=== PATIENT | male | born 1935 | race Caucasian/White ===

== ENCOUNTER 2024-07-31 16:08 | Inpatient (IN) | payer MEDICARE, MEDICAID ==
[~2024-07-31] VITALS: Ht 180.3 cm; Wt 125.3 kg
[2024-07-31 16:29] LABS: BASOPHILS # (AUTO) 0.1 K/UL (0.0-0.2); BASOPHILS % (AUTO) 0.7 % (0.0-2.0); EOSINOPHILS # (AUTO) 0.1 K/uL (0.0-0.7); EOSINOPHILS % (AUTO) 0.9 % (0.0-7.0); HEMATOCRIT 36.2 % (36.7-47.1); LYMPHOCYTES # (AUTO) 2.5 K/uL (0.8-4.8); MEAN CORPUSCULAR HGB CONC 33 g/dL (32.5-36.3); MEAN CORPUSCULAR VOLUME 90.7 fL (73.0-96.2); MONOCYTES # (AUTO) 0.9 K/uL (0.1-1.30); MONOCYTES % (AUTO) 8.1 % (0.0-11.0); NEUTROPHILS # (AUTO) 7.4 K/uL (1.8-8.9); NEUTROPHILS % (AUTO) 67.3 % (38.5-71.5); PLATELET COUNT (AUTO) 219 K/uL (152-348); RED BLOOD CELL COUNT(AUTO) 3.99 MIL/uL (4.06-5.63); RED CELL DISTRIBUTION WIDTH 13.8 % (12.1-16.2)
[2024-07-31 16:32] LABS: DIFFERENTIAL COMMENT 1
[2024-07-31] MEDS ORDERED: AREDS2 PO (16:36)
[2024-07-31] MEDS ORDERED: ACET325C7 PO (16:36)
[2024-07-31] MEDS ORDERED: FURO20TA4 PO (16:36)
[2024-07-31] MEDS ORDERED: SENN1TAB33 PO (16:36)
[2024-07-31 16:41] LABS: CARBON DIOXIDE 29 mmol/L (21-32); CHLORIDE 106 mmol/L (98-107); GLUCOSE 142 mg/dL (74-106); SODIUM SERUM 144 mmol/L (136-145); UREA NITROGEN, BLOOD 23 mg/dL (7-18)
[2024-07-31 16:49] LABS: ALANINE AMINOTRANSFERASE 15 U/L (16-63); ALBUMIN 3.4 g/dL (3.4-5.0); ALKALINE PHOSPHATASE 87 U/L (50-136); ASPARTATE AMINOTRANSFERASE 19 U/L (15-37); BILIRUBIN,DIRECT 0.1 mg/dL (0.0-0.2); BILIRUBIN,TOTAL 0.3 mg/dL (0.2-1.0); LIPASE 24 U/L (16-77); TOTAL PROTEIN, SERUM 6.6 g/dL (6.4-8.2)
[2024-07-31] MEDS: IV NORMAL SALINE 500 ML BAG IV ONE (16:51)
[2024-07-31 18:01] LABS: *BILIRUBIN,URIN NEGATIVE (NEGATIVE); *BLOOD, URINE NEGATIVE (NEGATIVE); *CLARITY,URINE CLEAR (CLEAR); *COLOR,URINE YELLOW (YELLOW); *KETONES,URINE NEGATIVE (NEGATIVE); *PROTEIN,URINE NEGATIVE (NEGATIVE); *UROBILINOGEN,URINE 0.2 E.U./dl (NORMAL); LEUKOCYTE ESTERASE ,URINE NEGATIVE (NEGATIVE); NITRITE, URINE NEGATIVE (NEGATIVE); UGLUCOSE NEGATIVE (NEGATIVE)
[2024-07-31] MEDS ORDERED: Medication Not On Formulary EA (Acetaminophen (Tylenol) 2 CAP) PO PRN (20:45)
[2024-07-31] MEDS ORDERED: MAGNESIUM HYDROXIDE 30 ML LIQUID UDC PO PRN (21:00)
[2024-07-31] MEDS ORDERED: HYDROCODONE/APAP 5-325MG TABLET PO PRN (21:00)
[2024-07-31] MEDS ORDERED: ACETAMINOPHEN 325 MG TABLET PO PRN (21:00)
[2024-07-31] MEDS ORDERED: ONDANSETRON 4 MG/2 ML VIAL IV PRN ×2 (21:00)
[2024-07-31] MEDS ORDERED: TEMAZEPAM 15 MG CAPSULE PO PRN ×2 (21:00)
[2024-07-31] MEDS ORDERED: DOCUSATE SODIUM 100 MG CAPSULE PO SCH (21:00)
[2024-07-31] MEDS: DOCUSATE SODIUM 100 MG CAPSULE PO SCH (23:36)
[2024-08-01] VITALS: BP 140/52; TEMP 97.9; O2SAT 93
[2024-08-01 04:00] VITALS: BP 124/38; TEMP 98.3; O2SAT 97
[2024-08-01] MEDS ORDERED: TEMAZEPAM 7.5 MG CAPSULE PO PRN (06:15)
[2024-08-01] MEDS: PANTOPRAZOLE SODIUM 40 MG TABLET.DR PO SCH (06:52)
[2024-08-01 07:19] VITALS: BP 151/64; TEMP 98.1; O2SAT 95
[2024-08-01 07:34] LABS: BASOPHILS # (AUTO) 0.1 K/UL (0.0-0.2); BASOPHILS % (AUTO) 0.7 % (0.0-2.0); EOSINOPHILS # (AUTO) 0.1 K/uL (0.0-0.7); EOSINOPHILS % (AUTO) 1.4 % (0.0-7.0); HEMATOCRIT 35.3 % (36.7-47.1); LYMPHOCYTES # (AUTO) 1.6 K/uL (0.8-4.8); MEAN CORPUSCULAR HEMOGLOBIN 30.9 uug (23.8-33.4); MEAN CORPUSCULAR HGB CONC 34 g/dL (32.5-36.3); MEAN CORPUSCULAR VOLUME 90.9 fL (73.0-96.2); MONOCYTES # (AUTO) 0.6 K/uL (0.1-1.30); MONOCYTES % (AUTO) 7.2 % (0.0-11.0); NEUTROPHILS # (AUTO) 5.5 K/uL (1.8-8.9); NEUTROPHILS % (AUTO) 70.7 % (38.5-71.5); PLATELET COUNT (AUTO) 187 K/uL (152-348); RED BLOOD CELL COUNT(AUTO) 3.88 MIL/uL (4.06-5.63); WHITE BLOOD COUNT (AUTO) 7.8 K/uL (3.6-10.2)
[2024-08-01 08:00] LABS: DIFFERENTIAL COMMENT 1
[2024-08-01 08:02] LABS: ALANINE AMINOTRANSFERASE 22 U/L (16-63); ALBUMIN 3.2 g/dL (3.4-5.0); ALKALINE PHOSPHATASE 81 U/L (50-136); ASPARTATE AMINOTRANSFERASE 21 U/L (15-37); BILIRUBIN,TOTAL 0.4 mg/dL (0.2-1.0); CALCIUM 8.5 mg/dL (8.5-10.1); CARBON DIOXIDE 31 mmol/L (21-32); CHLORIDE 105 mmol/L (98-107); CHOLESTEROL 150 mg/dL (<200); GLUCOSE 136 mg/dL (74-106); HDL CHOLESTEROL 46 mg/dL (40-60); MAGNESIUM 2.1 mg/dL (1.8-2.4); PHOSPHOROUS 3.5 mg/dL (2.5-4.9); POTASSIUM 3.8 mmol/L (3.5-5.1); SODIUM SERUM 140 mmol/L (136-145); TOTAL PROTEIN, SERUM 6.3 g/dL (6.4-8.2); TRIGLYCERIDES 114 MG/DL (30-150); UREA NITROGEN, BLOOD 18 mg/dL (7-18)
[2024-08-01 08:08] LABS: THYROID STIMULATING HORMONE 1.949 mIU/mL (0.358-3.740)
[2024-08-01] MEDS: FUROSEMIDE 20 MG TABLET PO SCH (08:53)
[2024-08-01] MEDS: SENNOSIDES/DOCUSATE SODIUM TABLET PO SCH ×2 (08:53→17:38)
[2024-08-01] MEDS: ACETAMINOPHEN 325 MG TABLET PO PRN (10:36)
[2024-08-01 11:02] VITALS: BP 121/52; TEMP 97.7; O2SAT 95
[2024-08-01] MEDS ORDERED: SERT-440 PO (14:52)
[2024-08-01] MEDS ORDERED: POLY119P2 PO (14:53)
[2024-08-01] MEDS: HYDROCODONE/APAP 5-325MG TABLET PO PRN (15:25)
[2024-08-01 15:53] VITALS: BP 137/55; TEMP 98.4; O2SAT 95
[2024-08-01] MEDS: MIRALAX 17 GM POWD.PACK PO SCH (17:38)
[2024-08-01] MEDS: SERTRALINE HCL 100 MG TABLET PO SCH (17:38)
[2024-08-01 19:00] VITALS: BP 133/58; TEMP 98.6; O2SAT 95
[2024-08-02] MEDS: MORPHINE SULFATE 4 MG/1 ML DISP.SYRIN IV PRN (00:44)
[2024-08-02 06:00] VITALS: BP 145/50; TEMP 97.4; O2SAT 95
[2024-08-02 07:02] LABS: BASOPHILS # (AUTO) 0.1 K/UL (0.0-0.2); BASOPHILS % (AUTO) 0.7 % (0.0-2.0); EOSINOPHILS # (AUTO) 0.1 K/uL (0.0-0.7); EOSINOPHILS % (AUTO) 1.6 % (0.0-7.0); HEMATOCRIT 36.4 % (36.7-47.1); HEMOGLOBIN 12.1 g/dL (12.5-16.3); LYMPHOCYTES # (AUTO) 1.5 K/uL (0.8-4.8); LYMPHOCYTES % (AUTO) 17.5 % (20.5-51.5); MEAN CORPUSCULAR HEMOGLOBIN 30.3 uug (23.8-33.4); MEAN CORPUSCULAR HGB CONC 33 g/dL (32.5-36.3); MEAN CORPUSCULAR VOLUME 90.8 fL (73.0-96.2); MONOCYTES # (AUTO) 0.6 K/uL (0.1-1.30); MONOCYTES % (AUTO) 7.2 % (0.0-11.0); NEUTROPHILS # (AUTO) 6.3 K/uL (1.8-8.9); PLATELET COUNT (AUTO) 181 K/uL (152-348); RED BLOOD CELL COUNT(AUTO) 4.01 MIL/uL (4.06-5.63); RED CELL DISTRIBUTION WIDTH 13.9 % (12.1-16.2); WHITE BLOOD COUNT (AUTO) 8.6 K/uL (3.6-10.2)
[2024-08-02 07:08] LABS: CALCIUM 8.1 mg/dL (8.5-10.1); CARBON DIOXIDE 32 mmol/L (21-32); CHLORIDE 104 mmol/L (98-107); CREATININE 0.8 mg/dL (0.6-1.3); GLUCOSE 143 mg/dL (74-106); POTASSIUM 4.2 mmol/L (3.5-5.1); SODIUM SERUM 143 mmol/L (136-145); UREA NITROGEN, BLOOD 15 mg/dL (7-18)
[2024-08-02 07:17] LABS: DIFFERENTIAL COMMENT 1
[2024-08-02 11:15] VITALS: BP 140/59; TEMP 98.4; O2SAT 94
[2024-08-02 15:17] VITALS: BP 103/47; TEMP 97.6; O2SAT 95
[2024-08-02 19:00] VITALS: BP 126/43; TEMP 98.8; O2SAT 97
[2024-08-02] MEDS: HYDROCODONE/APAP 5-325MG TABLET PO PRN (20:39)
[2024-08-03 06:00] VITALS: BP 120/78; TEMP 97.6; O2SAT 95
[2024-08-03 06:43] LABS: BASOPHILS # (AUTO) 0.1 K/UL (0.0-0.2); BASOPHILS % (AUTO) 0.7 % (0.0-2.0); EOSINOPHILS # (AUTO) 0.2 K/uL (0.0-0.7); EOSINOPHILS % (AUTO) 1.6 % (0.0-7.0); HEMATOCRIT 37.9 % (36.7-47.1); HEMOGLOBIN 12.6 g/dL (12.5-16.3); LYMPHOCYTES # (AUTO) 1.6 K/uL (0.8-4.8); LYMPHOCYTES % (AUTO) 16.7 % (20.5-51.5); MEAN CORPUSCULAR HEMOGLOBIN 30.1 uug (23.8-33.4); MEAN CORPUSCULAR HGB CONC 33 g/dL (32.5-36.3); MEAN CORPUSCULAR VOLUME 90.2 fL (73.0-96.2); MONOCYTES # (AUTO) 0.7 K/uL (0.1-1.30); MONOCYTES % (AUTO) 7.6 % (0.0-11.0); NEUTROPHILS # (AUTO) 7.1 K/uL (1.8-8.9); NEUTROPHILS % (AUTO) 73.4 % (38.5-71.5); PLATELET COUNT (AUTO) 186 K/uL (152-348); RED CELL DISTRIBUTION WIDTH 13.8 % (12.1-16.2); WHITE BLOOD COUNT (AUTO) 9.7 K/uL (3.6-10.2)
[2024-08-03 06:49] LABS: CALCIUM 8.5 mg/dL (8.5-10.1); CARBON DIOXIDE 31 mmol/L (21-32); CHLORIDE 103 mmol/L (98-107); CREATININE 0.8 mg/dL (0.6-1.3); GLUCOSE 117 mg/dL (74-106); POTASSIUM 3.9 mmol/L (3.5-5.1); SODIUM SERUM 140 mmol/L (136-145); UREA NITROGEN, BLOOD 16 mg/dL (7-18)
[2024-08-03 06:56] LABS: DIFFERENTIAL COMMENT 1
[2024-08-03] MEDS ORDERED: DOCU-141 PO (11:04)
[2024-08-03] MEDS ORDERED: BACL10TA PO (11:04)
[2024-08-03] MEDS ORDERED: SENN1TAB92 PO (11:04)
[2024-08-03] MEDS ORDERED: POLY17PO4 PO (11:04)
[2024-08-03] MEDS ORDERED: TRAM50TA2 PO (11:04)
[2024-08-03] MEDS ORDERED: SERT-440 PO (11:04)
[2024-08-03] MEDS ORDERED: PANT40TA49 PO (11:04)
[2024-08-03 11:42] VITALS: BP 111/42; TEMP 98.7; O2SAT 96
== END 2024-08-03 15:45 | disposition home or self-care (01) | DRG 641 ==
LOC: ER 18:28 → TELE3 22:38 → MEDSURG3 08-01 19:07
PROVIDERS: ADMIT Internal Medicine; ATTEND Nurse Practitioner Acute Care
DX: R62.7 Adult failure to thrive (principal); I48.20 Chronic atrial fibrillation, unspecified; K43.9 Ventral hernia without obstruction or gangrene; R33.9 Retention of urine, unspecified; H54.8 Legal blindness, as defined in USA; R29.6 Repeated falls; E66.9 Obesity, unspecified; Z68.37 Body mass index [BMI] 37.0-37.9, adult; H91.93 Unspecified hearing loss, bilateral; K57.30 Diverticulosis of large intestine without perforation or abscess without bleeding; K59.00 Constipation, unspecified; M54.50 Low back pain, unspecified; G89.29 Other chronic pain; Z79.899 Other long term (current) drug therapy; I11.0 Hypertensive heart disease with heart failure; I50.9 Heart failure, unspecified
CPT/HCPCS: 36415; 71045; 83690; 83735; 84100; 84443; 84484; 85025; 93005; G0378; J2270; J7040